=== PATIENT | female | born 1965 | race American Indian/Alaskan Native ===

== ENCOUNTER 2019-09-22 17:51 | Emergency (ER) | payer BC ==
[2019-09-22] MEDS ORDERED: ASPIRIN 325 MG TAB PO ONE (19:09)
--- NOTE | 2019-09-22 19:11 | Event Note ---
ED Screening Note Date of service: 09/22/19 Time: 19:09 ED Screening Note: This is a 53 y.o. F. that presents to the ER with headache, palpitations, and chest pain since today. FM HX of CAD This initial assessment/diagnostic orders/clinical plan/treatment(s) is/are subject to change based on patients health status, clinical progression and re- assessment by fellow clinical providers in the ED. Further treatment and workup at subsequent clinical providers discretion. Patient/guardian urged not to elope from the ED as their condition may be serious if not clinically assessed and managed. Initial orders include: Labs, EKG, & CXR
--- NOTE | 2019-09-22 19:46 | XRay Report ---
CHEST 1 VIEW 7:32 PM INDICATION / CLINICAL INFORMATION: Midsternal chest pain. COMPARISON: None available. FINDINGS: SUPPORT DEVICES: None. HEART / MEDIASTINUM: The heart size and pulmonary vasculature are normal. The aorta is normal in [place]. LUNGS / PLEURA: No significant pulmonary or pleural abnormality. No pneumothorax. ADDITIONAL FINDINGS: No significant additional findings. IMPRESSION: No acute findings. Signer Name: Fuentes Bae MD Signed: 09/22/2019 7:42 PM Workstation Name: [id number]
[2019-09-22 19:53] LABS: Basophils # (Auto) 0.1 K/mm3 (0.0-0.1); Basophils % (Auto) 1.2 % (0.0-1.8); Eosinophils # (Auto) 0.2 K/mm3 (0.0-0.4); Eosinophils % (Auto) 2.9 % (0.0-4.3); Hemoglobin 13.8 gm/dl (10.1-14.3); Lymphocytes # (Auto) 1.7 K/mm3 (1.2-5.4); Lymphocytes % (Auto) 30.5 % (13.4-35.0); Mean Corpuscular HGB Conc 35 % (30-34); Mean Corpuscular Volume 85 fl (79-97); Monocytes # (Auto) 0.5 K/mm3 (0.0-0.8); Monocytes % (Auto) 8.6 % (0.0-7.3); Platelet Count 324 K/mm3 (140-440); Red Blood Count 4.71 M/mm3 (3.65-5.03); Red Cell Distribution Width 12.8 % (13.2-15.2)
[2019-09-22 20:14] LABS: BUN/Creatinine Ratio 9; Blood Urea Nitrogen 6 mg/dL (7-17); Calcium 9.4 mg/dL (8.4-10.2); Hemolysis Index 9
--- NOTE | 2019-09-22 21:13 | Emergency Department Report ---
ED Chest Pain HPI - General Chief Complaint: Chest Pain Stated Complaint: CHEST PAIN Time Seen by Provider: 09/22/19 19:09 Source: patient Mode of arrival: Wheelchair Limitations: No Limitations - History of Present Illness Initial Comments: Patient is 53 years old female with no significant past medical history. Patient presented to the ER complaining of substernal chest pain started yesterday. Patient stated that pain is worse today. Patient describes her pain as heaviness was no radiation. Patient denied any shortness of breast, fever, cough, nausea or vomiting. Patient also denied any weakness numbness or tingling sensation. Patient stated that she had a headache yesterday but it went away. Patient found to have a blood pressure of 183/102. MD Complaint: chest pain -: Last night Onset: during rest Pain Location: substernal Pain Radiation: none Quality: heaviness Consistency: intermittent - Related Data Previous Rx's Medication Instructions Recorded Last Taken Type Ibuprofen [Motrin] 800 mg PO Q8H #30 tablet 08/03/14 Unknown Rx methOCARBAMOL [Robaxin] 750 mg PO Q8H #30 tablet 08/03/14 Unknown Rx traMADoL [Ultram 50 MG tab] 50 mg PO Q6HR PRN #30 tablet 08/03/14 Unknown Rx Allergies Allergy/AdvReac Type Severity Reaction Status Date / Time No Known Allergies Allergy Unverified 08/03/14 18:52 Heart Score - HEART Score History: Slightly suspicious EKG: Non-specific Age: 45-65 Risk factors: 1-2 risk factors Troponin: < normal limit HEART Score: 3 - Critical Actions Critical Actions: 0-3 pts:0.9-1.7%risk of adverse cardiac event.Candidate for discharge ED Review of Systems ROS: Stated complaint: CHEST PAIN Other details as noted in HPI Comment: All other systems reviewed and negative Constitutional: denies: chills, fever Respiratory: denies: cough, shortness of breath, SOB with exertion, wheezing Cardiovascular: chest pain, palpitations. denies: dyspnea on exertion, orthopnea Gastrointestinal: denies: abdominal pain, nausea, vomiting Musculoskeletal: denies: back pain Neurological: denies: headache, weakness, numbness, paresthesias, confusion, abnormal gait ED Past Medical Hx - Past Medical History Previous Medical History?: No - Surgical History Past Surgical History?: No Additional Surgical History: fibroids - Social History Smoking Status: Never Smoker Substance Use Type: None - Medications Home Medications: Home Medications Medication Instructions Recorded Confirmed Last Taken Type Ibuprofen [Motrin] 800 mg PO Q8H #30 tablet 08/03/14 Unknown Rx methOCARBAMOL [Robaxin] 750 mg PO Q8H #30 tablet 08/03/14 Unknown Rx traMADoL [Ultram 50 MG tab] 50 mg PO Q6HR PRN #30 tablet 08/03/14 Unknown Rx ED Physical Exam - General Limitations: No Limitations General appearance: alert, in no apparent distress - Head Head exam: Present: atraumatic, normocephalic, normal inspection - Eye Eye exam: Present: normal appearance - ENT ENT exam: Present: normal exam, normal orophraynx, mucous membranes moist - Neck Neck exam: Present: normal inspection, full ROM. Absent: tenderness, meningismus, lymphadenopathy, thyromegaly - Respiratory Respiratory exam: Present: normal lung sounds bilaterally. Absent: respiratory distress, wheezes, rales, rhonchi, stridor, chest wall tenderness - Cardiovascular Cardiovascular Exam: Present: regular rate, normal rhythm, normal heart sounds - GI/Abdominal GI/Abdominal exam: Present: soft, normal bowel sounds. Absent: distended, tenderness, guarding, rebound, rigid, organomegaly, mass, bruit, pulsatile mass, hernia - Extremities Exam Extremities exam: Present: normal inspection, full ROM, normal capillary refill. Absent: tenderness, pedal edema, calf tenderness - Back Exam Back exam: Present: normal inspection, full ROM. Absent: CVA tenderness (R), CVA tenderness (L), muscle spasm, paraspinal tenderness, vertebral tenderness - Neurological Exam Neurological exam: Present: alert, oriented X3, CN II-XII intact, normal gait, reflexes normal - Psychiatric Psychiatric exam: Present: normal mood - Skin Skin exam: Present: warm, intact, normal color ED Course Vital Signs 09/22/19 09/22/19 09/22/19 19:06 21:11 21:16 Temperature 98.7 F Pulse Rate 69 68 68 Respiratory 20 13 14 Rate Blood Pressure 183/102 160/84 Blood Pressure 160/84 [Right] O2 Sat by Pulse 100 100 Oximetry 09/22/19 09/22/19 21:46 22:00 Temperature Pulse Rate 61 64 Respiratory 16 14 Rate Blood Pressure 162/82 149/80 Blood Pressure [Right] O2 Sat by Pulse 99 99 Oximetry MILIND score - Milind Score Age > 65: (0) No Aspirin use within the Past 7 Days: (0) No 3 or more CAD Risk Factors: (0) No 2 or more Angina events in past 24 hrs: (0) No Known CAD with more than 50% Stenosis: (0) No Elevated Cardiac Markers: (0) No ST Deviation Greater than 0.5mm: (0) No MILIND Score: 0 ED Medical Decision Making - Lab Data Result diagrams: 09/22/19 19:21 09/22/19 19:21 - EKG Data -: EKG Interpreted by [place] EKG shows normal: sinus rhythm Rate: normal - EKG Data Interpretation: no acute changes - Radiology Data Radiology results: report reviewed - Medical Decision Making Patient is 53 years old female with no significant past medical history. Patient presented to the ER complaining of substernal chest pain started yesterday. Patient stated that pain is worse today. Patient describes her pain as heaviness was no radiation. Patient denied any shortness of breast, fever, cough, nausea or vomiting. Patient also denied any weakness numbness or tingling sensation. Patient stated that she had a headache yesterday but it went away. Patient found to have a blood pressure of 183/102. Patient's symptoms completely resolved after clonidine 0.1 mg. Patient found blood pressure is 143/82. Patient will be started on Norvasc 5 mg and advised to keep a blood pressure log and to follow-up with her primary care physician in the next 2-3 days and to return to the ER if symptoms are not improved. Critical care attestation.: If time is entered above; I have spent that time in minutes in the direct care of this critically ill patient, excluding procedure time. ED Disposition Clinical Impression: Chest pain, Malignant hypertension Disposition: DC-01 TO HOME OR SELFCARE Is pt being admited?: No Condition: Stable Instructions: Chest Pain (ED), Hypertension (ED) Referrals: PRIMARY CARE,MD [Primary Care Provider] - 3-5 Days
[2019-09-22] MEDS ORDERED: cloNIDine 0.1 MG TAB PO ONE (21:18)
[2019-09-22] MEDS ORDERED: ALUM-MAG HYDROXIDE-SIMETHICONE 200-200-20MG/5ML ORAL LIQD 30 ML PO ONE (22:32)
[2019-09-22] MEDS ORDERED: LIDOCAINE VISCOUS 2% 15 ML ORAL LIQD PO ONE (22:32)
[2019-09-22 23:38] VITALS: BP 143/77
== END 2019-09-22 23:40 | disposition home or self-care (01) ==
LOC: ED 17:51
DX: I10 Essential (primary) hypertension (principal); Z79.1 Long term (current) use of non-steroidal anti-inflammatories (NSAID); Z79.899 Other long term (current) drug therapy
CPT/HCPCS: 36415; 71045; 80048; 84484; 85025; 93005; 93010; 99284